=== PATIENT | male | born 2000 | race Two or more races ===

== ENCOUNTER 2018-04-21 19:18 | Emergency (ER) | payer OTHER ==
--- NOTE | 2018-04-21 20:14 | EDPHY ---
H & P Time Seen by Provider: 04/21/18 20:09 HPI/ROS: CHIEF COMPLAINT: Left thumb pain HISTORY OF PRESENT ILLNESS: Patient here with acute left thumb pain after he was sitting on his hand and twisted and felt a pop in his left thumb. He has tried no medication to alleviate his pain. He has full range of motion but this is painful to the base of the thumb. He has never had this pain before. Does not smoke or do any drugs. REVIEW OF SYSTEMS: Constitutional: No fever, no chills. Eyes: No discharge. ENT: No sore throat. Cardiovascular: No chest pain, no palpitations. Respiratory: No cough, no shortness of breath. Gastrointestinal: No abdominal pain, no vomiting. Genitourinary: No hematuria. Musculoskeletal: No back pain. Skin: No rashes. Neurological: No headache. Smoking Status: Never smoked Physical Exam: General Appearance: Alert and no distress. Eyes: Pupils equal and round no injection. Respiratory: Chest is nontender, lungs are clear to auscultation. Cardiac: regular rate and rhythm. Gastrointestinal: Abdomen is soft and nontender, no masses, bowel sounds normal. Musculoskeletal: Neck is supple and nontender. Extremities have full range of motion and are nontender. Skin: No rashes or lesions. Constitutional: Initial Vital Signs Temperature (C) 37.8 C 04/21/18 19:32 Heart Rate 81 04/21/18 19:32 Respiratory Rate 16 04/21/18 19:32 Blood Pressure 110/56 L 04/21/18 19:32 O2 Sat (%) 96 04/21/18 19:32 O2 Delivery Mode Room Air Allergies/Adverse Reactions: No Known Allergies Allergy (Unverified 04/21/18 19:32) Home Medications: Medication Instructions Recorded NK [No Known Home Meds] 04/21/18 Medical Decision Making - Diagnostics Imaging Results: Imaging Impressions Finger X-Ray 04/21/18 20:13 Impression: Anatomic alignment. No dislocation or fracture. ED Course/Re-evaluation: Patient here with acute thumb pain. X-rays reveal no acute bony process. He has full range of motion of the fingers neurovascular intact. We discussed indication for follow-up to further evaluate ligamentous instability or other non bony injury. Departure - Departure Disposition: Home, Routine, Self-Care Clinical Impression: Finger sprain Condition: Good Instructions: Finger Sprain (ED) Additional Instructions: Please follow up with your primary care doctor in the next 5 7 days via of continued pain. Referrals: NONE *PRIMARY CARE P,. [Primary Care Provider] - As per Instructions
[2018-04-21 21:03] VITALS: BP 115/68
== END 2018-04-21 21:02 | disposition home or self-care (01) ==
DX: M79.642 Pain in left hand (principal)